=== PATIENT | female | born 1970 | race African-American/Black ===

== ENCOUNTER 2020-01-28 08:48 | Emergency (ER) | payer MEDICAID ==
[~2020-01-28] VITALS: Ht 170.2 cm; Wt 74.0 kg
[~2020-01-28 08:48] MED LIST: METFORMIN
[2020-01-28 09:22] LABS: HEMATOCRIT. 45.8 % (36.0-48.0); HEMOGLOBIN. 15.2 g/dL (12.0-16.0); MEAN CORPUSCULAR HEMOGLOBIN 28.7 pg (28.0-32.0); MEAN CORPUSCULAR VOLUME 86.4 fL (81.0-99.0); MEAN PLATELET VOLUME 8.5 fl (7.4-10.4); PLATELET 396 x1000/uL (130-400); RED BLOOD CELL COUNT 5.29 mill/uL (4.2-5.4); RED CELL DISTRIBUTION WIDTH 13.9 % (11.6-14.6)
[2020-01-28 09:29] LABS: CHLORIDE 101 mEq/L (98-107)
[2020-01-28 09:35] LABS: HCG SCREEN NEGATIVE
[2020-01-28 09:39] LABS: ETHANOL BLOOD < 10 mg/dL
[2020-01-28 10:47] LABS: PLATELET ESTIMATE NORMAL
[2020-01-28 13:25] VITALS: BP 147/94
[2020-01-28] MEDS ORDERED: ACETAMINOPHEN 325MG TABLET PO ONE (13:30)
== END 2020-01-28 14:11 | disposition home or self-care (01) ==
LOC: ER 09:36
DX: F10.129 Alcohol abuse with intoxication, unspecified (principal); F12.10 Cannabis abuse, uncomplicated; E11.9 Type 2 diabetes mellitus without complications; Y90.0 Blood alcohol level of less than 20 mg/100 ml
CPT/HCPCS: 36415; 71045; 74176; 80053; 80320; 82962; 83880; 84484; 84703; 85025; 93005; 99285; G0480